=== PATIENT | male | born 1955 | race Caucasian/White ===

== ENCOUNTER 2021-12-06 17:09 | Emergency (ER) | payer MEDICARE ==
[2021-12-06] MEDS ORDERED: Sodium Chloride 0.9% 10 ML Syringe FLUSH PRN (17:38)
[2021-12-06] MEDS ORDERED: hydrALAZINE 20 MG/ML SDV IVPUSH ONE (17:55)
[2021-12-06] MEDS ORDERED: Sodium Chloride 0.9% 1,000 ML IV ONE (18:58)
[2021-12-06] MEDS: Nitroglycerin 0.4 MG Tab.SL SL PRN ×3 (20:04→20:15)
[2021-12-06] MEDS ORDERED: Heparin Sodium 5,000 Units/ML Vial IVPUSH ONE (20:14)
[2021-12-06] MEDS ORDERED: Heparin Sodium/D5W 25,000 UNITS/500 ML BAG IV SCH (20:15)
[2021-12-06] MEDS ORDERED: Aspirin 81 MG Tab.Chew PO ONE (20:20)
[2021-12-06] MEDS ORDERED: Nitroglycerin/D5W 25 MG/250 ML BOTTLE IV SCH (20:36)
== END 2021-12-06 21:25 ==
LOC: JD.ED 17:09
DX: I21.4 Non-ST elevation (NSTEMI) myocardial infarction (principal)
CPT/HCPCS: 36415; 71045; 80053; 82947; 83690; 83735; 83880; 84484; 85025; 85610; 85730; 93005; 96365; 96368; 96375; 99285; A9270; J0360; J1644; J3490; J7030